=== PATIENT | male | born 1995 | race Native Hawaiian/Other Pacific Islander ===

== ENCOUNTER 2020-02-15 21:14 | Emergency (ER) | payer OTHER ==
[~2020-02-15] VITALS: Ht 162.6 cm; Wt 69.9 kg
[2020-02-15 21:19] VITALS: TEMP 99.8
[2020-02-15 22:38] LABS: PLATELET COUNT 258 K/uL (142-355)
[2020-02-15 22:45] LABS: POTASSIUM 3.7 mmol/L (3.6-5.2)
[2020-02-16 00:02] VITALS: BP 120/84
== END 2020-02-16 00:03 | disposition home or self-care (01) ==
LOC: ED 21:14
PROVIDERS: Family Medicine
DX: J06.9 Acute upper respiratory infection, unspecified (principal); R50.9 Fever, unspecified
CPT/HCPCS: 36415; 80053; 81000; 82728; 85027; 85379; 87502; 87651; 99282